=== PATIENT | female | born 1995 | race Caucasian/White ===

== ENCOUNTER 2019-07-24 13:02 | Emergency (ER) | payer BC, SELFPAY ==
[2019-07-24 13:13] VITALS: BP 156/84; PULSE 72; RESP 18; TEMP 37.3; O2SAT 100
--- NOTE | 2019-07-24 13:36 | ED.URI ---
HPI - URI/Sore Throat General Chief Complaint: Upper Respiratory Infection Stated Complaint: Congestion Time Seen by Provider: 07/24/19 13:19 Source: patient and RN notes reviewed Mode of arrival: ambulatory Limitations: no limitations History of Present Illness HPI Narrative: Patient presents today complaining of productive cough, subjective fever, shortness of breath with exertion, postnasal drip, hoarseness, and sore throat since last night. No history of asthma or COPD. She does not smoke or vape. She has tried no medication for symptoms prior to arrival. MD elicited complaint: fever and cough Related Data Home Medications Medication Instructions Recorded Confirmed No Home Medications 07/24/19 07/24/19 Allergies Allergy/AdvReac Type Severity Reaction Status Date / Time nickel Allergy Unknown RASH Verified 09/02/17 19:00 Review of Systems Review of Systems: Narrative: CONSTITUTIONAL: Denies body aches, chills, or sweats.+ Subjective fever EYES: Denies visual changes, redness, or discharge. ENT: Denies rhinorrhea, congestion, or otalgia.+postnasal drip, hoarseness, sore throat CARDIOVASCULAR: Denies chest pain, palpitations, or edema. RESPIRATORY: Cough, shortness of breath with exertion GASTROINTESTINAL: Denies abdominal pain, nausea, vomiting, or diarrhea. GENITOURINARY: Denies dysuria or hematuria. SKIN: Denies rash, itching, or wounds. MUSCULOSKELETAL: Denies back pain, joint pain, or myalgia. NEUROLOGIC: Denies headache, numbness, tingling, or weakness. PSYCH: Denies depression or anxiety. PMFSH Comments At time of signature, I have reviewed and agree with nursing past medical, surgical, social and family history unless otherwise noted. Please see nursing chart for further information. There is no relevant family history pertinent to the presenting complaint Exam Narrative: Exam Narrative: GENERAL: Mildly ill-appearing, well-nourished, and in no acute distress. HEAD: Normocephalic, atraumatic. EYES: EOMI. No redness or drainage. Conjunctivae normal. ENT: Mucous membranes pink and moist. Nares clear. No rhinorrhea. TMs normal bilaterally. Throat normal. Uvula midline. NECK: Normal AROM. Supple. No lymphadenopathy. CHEST: No respiratory distress. Clear to auscultation. HEART: Regular rate and rhythm. No murmur appreciated. Normal peripheral pulses. EXTREMITIES: Normal range of motion. No edema. SKIN: Warm, dry, no rash. NEURO: No focal deficits. Alert and oriented x3. Gait steady. PSYCH: Normal affect. No signs of depression or anxiety. Course Vital Signs Vital signs: Vital Signs Temperature 99.1 F 07/24/19 13:13 Pulse Rate 72 07/24/19 13:13 Respiratory Rate 18 07/24/19 13:13 Blood Pressure 156/84 H 07/24/19 13:13 Pulse Oximetry 100 07/24/19 13:13 Temperature 99.1 F 07/24/19 13:13 Pulse Rate 72 07/24/19 13:13 Respiratory Rate 18 07/24/19 13:13 Blood Pressure 156/84 H 07/24/19 13:13 Pulse Oximetry 100 07/24/19 13:13 Reviewed. Pt has been instructed to follow up with her PCP regarding her elevated blood pressure today. MDM - URI/Sore Throat Differential Diagnosis Differential diagnosis: Likely upper respiratory infection, sinusitis, viral infection, influenza, pharyngitis and other (Strep throat) Lab Data Attestation: I reviewed the patient's lab results. Labs: Influenza A Screen Negative Reference Range: Negative Influenza B Screen Positive Reference Range: Negative Strep Screen Presumptive Negative *(Reference Range: Negative)* Critical Care Time Critical Care Time Critical Care Time: No Discharge Plan Discharge Clinical Impression: Influenza B Patient Disposition: Home, Self-Care Condition: Stable Instructions: Influenza (DC) Additional Instructions: Your rapid strep screen is negative today. Your influenza swab is positive for influenza B. You will be contag
== END 2019-07-24 13:59 | disposition home or self-care (01) ==
PROVIDERS: Emergency Provider Nurse Practitioner
DX: J10.1 Influenza due to other identified influenza virus with other respiratory manifestations (principal)
CPT/HCPCS: 87081; 87804; 87880; 99213; G0463

== ENCOUNTER 2023-03-08 15:38 | Emergency (ER) | payer BC, SELFPAY ==
--- NOTE | 2023-03-08 15:54 | ED.URI ---
HPI - URI/Sore Throat General Chief Complaint: Fever Stated Complaint: chills,headache Time Seen by Provider: 03/08/23 15:54 Source: patient Mode of arrival: ambulatory Limitations: no limitations History of Present Illness HPI Narrative: 27-year-old female presents with complaint of nasal congestion, sore throat, cough, headaches for 3 days. Afebrile today. Took Tylenol and Sudafed at a.m. prior to going to work. States at 10:00 a.m. she started to feel really sick, fatigue, body aches. Has not taking any antipyretics since 8:00 a.m.. Denies chest pain but reports that she is feeling somewhat short of breath today. All systems reviewed and negative except as noted above. Related Data Allergies Allergy/AdvReac Type Severity Reaction Status Date / Time nickel Allergy Unknown RASH Verified 03/08/23 15:44 Review of Systems Review of Systems: CONSTITUTIONAL: reports fever, chills, or sweats. EYES: Denies visual changes, redness, or discharge. ENT: Reports rhinorrhea, congestion, sore throat. Denies otalgia. CARDIOVASCULAR: Denies chest pain, palpitations, or edema. RESPIRATORY: reports cough. Denies dyspnea. GASTROINTESTINAL: Denies abdominal pain, nausea, vomiting, or diarrhea. GENITOURINARY: Denies dysuria or hematuria. SKIN: Denies rash or itching. MUSCULOSKELETAL: Denies back pain, joint pain, or myalgia. NEUROLOGIC: Denies headache, numbness, or weakness. PSYCHIATRIC: Denies anxiety or depression. All other systems reviewed are negative, except as documented in HPI. 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 There is no relevant family history pertinent to the presenting complaint. Exam Narrative: GENERAL: This is a well-nourished, well-developed patient, patient ill-appearing but in no acute distress. HEAD: normocephalic, atraumatic. EYES: PERRL. Sclera clear/white. Vision is grossly intact. EARS: External ears normal, auditory canals clear and without drainage, Fluid bilateral TMs. Hearing grossly intact. NOSE: External nose normal with Regular nasal drainage, erythema swelling to bilateral nares. Frontal and maxillary sinus tenderness On palpation. THROAT: Mucous membranes moist, posterior pharynx clear. NECK: Neck supple, non-tender without lymphadenopathy, masses or thyromegaly. CARDIOVASCULAR: Regular rate and rhythm without murmurs, gallops, or rubs. RESPIRATORY: Decreased lung sounds in lower lung bennett.. Breath sounds equal bilaterally. No wheezes, rales, or rhonchi. SKIN: warm, Dry, intact with no suspicious lesions or rash, good texture and turgor. NEURO: awake, alert, and oriented to person, place and time. There were no obvious focal neurologic abnormalities. EXTREMITIES: No joint tenderness, effusion, or edema noted. No calf tenderness. Negative Homans sign bilaterally. BACK: Nontender without deformity. No CVA tenderness. Course Course Level of Care: Express Care Visit Vital Signs Vital signs: Vital Signs Temperature 39.3 C H 03/08/23 16:00 Pulse Rate 108 H 03/08/23 16:00 Respiratory Rate 16 03/08/23 16:00 Blood Pressure 135/89 03/08/23 16:00 Pulse Oximetry 100 03/08/23 16:00 Oxygen Delivery Room Air 03/08/23 16
[2023-03-08 16:00] VITALS: BP 135/89; PULSE 108; RESP 16; TEMP 39.3; O2SAT 100
[2023-03-08] MEDS: IBUPROFEN 600 MG TABLET PO (16:08)
== END 2023-03-08 16:26 | disposition home or self-care (01) ==
PROVIDERS: Emergency Provider Nurse Practitioner Family; PCP Nurse Practitioner
DX: J01.90 Acute sinusitis, unspecified (principal); R05.9 Cough, unspecified
CPT/HCPCS: 87081; 87804; 87880; 99213; A9270; G0463